=== PATIENT | female | born 1990 ===

== ENCOUNTER 2022-07-25 09:51 | Outpatient (CLI) | payer OTHER | END 2022-07-25 11:58 | disposition home or self-care (01) | LOC: PRENATAL 09:51 | PROVIDERS: ATTEND Obstetrics & Gynecology Maternal & Fetal Medicine | DX: O35.9XX0 Maternal care for (suspected) fetal abnormality and damage, unspecified, not applicable or unspecified (principal); O34.10 Maternal care for benign tumor of corpus uteri, unspecified trimester; O35.3XX0 Maternal care for (suspected) damage to fetus from viral disease in mother, not applicable or unspecified; O09.219 Supervision of pregnancy with history of pre-term labor, unspecified trimester; Z3A.19 19 weeks gestation of pregnancy ==

== ENCOUNTER 2022-09-18 13:02 | Outpatient (CLI) | payer OTHER | END 2022-09-18 15:15 | disposition home or self-care (01) | LOC: PRENATAL 13:02 | PROVIDERS: ATTEND Obstetrics & Gynecology Maternal & Fetal Medicine | DX: O26.849 Uterine size-date discrepancy, unspecified trimester (principal); O09.219 Supervision of pregnancy with history of pre-term labor, unspecified trimester; O34.10 Maternal care for benign tumor of corpus uteri, unspecified trimester; Z3A.27 27 weeks gestation of pregnancy ==

== ENCOUNTER 2022-11-01 09:04 | Outpatient (CLI) | payer OTHER | END 2022-11-01 10:05 | disposition home or self-care (01) | LOC: PRENATAL 09:04 | PROVIDERS: ATTEND Obstetrics & Gynecology Maternal & Fetal Medicine | DX: O26.849 Uterine size-date discrepancy, unspecified trimester (principal); O36.8199 Decreased fetal movements, unspecified trimester, other fetus; O09.219 Supervision of pregnancy with history of pre-term labor, unspecified trimester; O34.10 Maternal care for benign tumor of corpus uteri, unspecified trimester; Z3A.33 33 weeks gestation of pregnancy ==